=== PATIENT | male | born 1940 | race Caucasian/White ===

== ENCOUNTER → 2016-12-03 | Outpatient (CLI) | payer MEDICARE, BC ==
--- NOTE | 2016-12-03 19:20 | HKNOTE ---
DATE OF SERVICE: 12/03/2016 MAIN COMPLAINT: Pain in the right hip. HISTORY OF MAIN COMPLAINT: The patient is a 76-year-old male who underwent a right hip replacement, which was performed by me in 2006 (10 years ago). He had actually no pain for the first 2 years, t hen he developed intermittent pain in the groin. He would auto prescribe antibiotics each time and then the pain would go away! The pain never became very severe. The patient developed infected cholelithiasis in 08/2016. He had surgery for the gallbladder. Two days later, he developed pancreatitis and was back in the operating room. He remained in the hospit al for 2 weeks after that with a PICC line for intravenous antibiotics. About 3 weeks after this ep isode when the gallbladder started, he developed increasing pain in the right groin. He states that until then the pain was perhaps a 4 on a scale of 10, but it went to 7 or an 8 on a s mary of 10. He saw an orthopedic surgeon in [place] by the name of Dr. Caicedo, who is with the [facility]. Dr. Caicedo told him that he would need to have revision of the right hip replacement, and "that he should go back to the doctor who performed the operation." Dr. Caicedo ordered fluid to be aspirated from the right hip for culture and sensitivity (he himself d oes not do it). Two attempts were made. On the first attempt, perhaps 1 mL or so of fluid, which l ooked like milk, was extracted. The cultures on that fluid were negative (possibly because he was o n antibiotics at that time). Subsequently, the hip was again aspirated, but "hip was dry." Note that patient had 2 admissions hospital in [place]. One was for the gallbladder infection, at which time he was kept in the hospital for 2 weeks on intravenous antibiotics and he was sent thong e with a PICC line. The second admission was because they could not aspirate his hip without giving him some sedation or anesthesia. He was in the hospital for 1 week. "No other treatment was given to me." The patient is not able to lie flat on his back to cooperate with any type of hip aspiration. He is not even able to have x-rays of his right hip because he cannot lie flat and therefore he does not have any x-rays today and he did not bring any with him. Note that with the 2 "aspirations," no injections were found. PRESENT COMPLAINTS: The patient's pain is in his right groin and also radiates to his lower back do wn his right thigh. Pain is described as being severe and is aggravated by walking, weightbearing, stair climbing. He does get rest pain and night pain. He has been taking [place] and OxyContin for t he pain. He also takes Lortab. He has had multiple operations on his lumbar spine. He does get pa in in the lower back. On a level surface, he can walk past 25 yards using a cane or a walker at all times. He limps all the time. His leg lengths feel equal. He cannot clip his toenails or tie his shoelace s on the right side. He does not wear a shoe lift. SPORTING ACTIVITIES: None. PAST ORTHOPEDIC HISTORY: PREVIOUS ORTHOPEDIC OPERATIONS: 1. Spine surgery 25 years ago. 2. Right hip [place] [address] Del Angel. 3. Right knee replacement [place] [address] Del Angel. PRIOR CORTISONE INTAKE: One injection 20 years ago. ALCOHOL INTAKE: None. OTHER JOINT PROBLEMS: Left hip and knee, hands. BLOOD TESTS FOR ARTHRITIS: Unknown. PRIOR INJURIES TO HIPS OR KNEES: None. WORK STATUS: The patient has been on disability since 1990. He retired 20 years ago on account of his multiple injuries. PAST MEDICAL HISTORY: 1. Hypertension. 2. Diabetes. 3. Atrial fibrillation. PAST SURGICAL HISTORY: 1. Two spine surgeries 25 years ago. 2. Right hip replacement, 2006. 3. Right knee replacement in 2007. ALLERGIES: "A BAD REACTION TO ALBUTEROL TREATMENT." MEDICATIONS: 1. MiraLax 1 packet daily. 2. Ranitidine. 3. Cyclobenzaprine 1 tablet 3 times a day. 4. OxyContin 10 mg every 12 hours. 5. Jordana 180 mg daily. 6. Aspirin 325 mg daily. 7. Atorvastatin 20 mg daily. 8. Hydrochlorothiazide 12.5 mg daily. 9. Levoxyl 50 mcg daily. 10. Digoxin 250 mcg daily. 11. Pradaxa 150 mg twice a day. 12. Amiodarone 200 mg daily. 13. Ramipril 1.25 mg daily. 14. Tresiba 200 units subcutaneous every day. 15. Invokana 40 mg daily. 16. Hydrocodone/APAP 10/325 one tablet every 4 to 6 hours. FAMILY HISTORY: Father at 84 of cancer. Mother at 83 of cancer. SYSTEMS REVIEW: Skipping heart beats, heartburn, excess urination, hypertension. The patient is cu rrently on Pradaxa. Diabetes. Ankles swell from time to time. HABITS: The patient does not smoke or drink alcoholic beverages. FAMILY CARE PHYSICIAN: Driss Wagner MD [address] [place] [address], [address], [place], [place]. PHYSICAL EXAMINATION: GENERAL: The patient is a grossly overweight 76-year-old man. He comes in with his . He has a walker. He can barely walk. He is not able to get up on the examination couch for examination. HIPS: Short range passive motions of his right hip are completely free of pain. DISCUSSION: A 76-year-old male who had a right hip replacement, which was performed by me in 2006 ( 10 years ago). The patient has had pain in the right hip, which seems to have come on after he deve loped septic cholelithiasis and septic pancreatitis. There have been 2 attempts to aspirate fluid from his right hip. On the first attempt, about 1 mL o f fluid was obtained, which apparently cultured negative. He is not sure if he was on antibiotics a t the time at which fluid was taken . The second time fluid is aspirated, "it was a dry tap." The patient's prior hip x-rays were reviewed. These show that he has had an ASR socket in the right hip. Images obtained from the last visit show that all components seem to be well attached to the bone and well aligned. No new x-rays were obtained today. The patient is not able to get on onto the x-ray table. He refu sed to get onto the examination table for examination of the right hip. I offered to aspirate his r ight hip under local anesthetic, but he absolutely could not get onto the examination couch "because of my pain." The patient is advised that first of all, if he needs surgery, I will refer him to my partner, Dr. Fredis Pimentel, for management of an infected hip replacement. Regardless without new x-rays and withou t a definite clearcut result from hip aspiration, we could not proceed with him in any way. MANAGEMENT: I will call his manager insurance, Dr. Driss Wagner, and discuss all of this with him. Someho w, we need to get this man's hip aspirated. We are not able to move any further without doing so. FOOTNOTE: The patient had a high cobalt level on 03/03/2012 when it was 4.3 (or 43, I am not sure). Dictated By: DAMION RAMIRES/ELLYN Conf#: [id number] DID#: [id number]
== END | disposition home or self-care (01) ==
LOC: HKI 13:32
DX: M25.551 Pain in right hip (principal); Z96.641 Presence of right artificial hip joint; Z96.651 Presence of right artificial knee joint; I10 Essential (primary) hypertension
CPT/HCPCS: 73502; G0463

== ENCOUNTER 2016-12-31 05:38 | Observation (INO) | payer MEDICARE, BC ==
[2016-12-31] VITALS (24 sets, daily range): BP systolic 132–162; BP diastolic 56–85; PULSE 74–84; RESP 12–20; Ht 188 cm; Wt 133.3 kg
[~2016-12-31] VITALS: Ht 188 cm; Wt 133.3 kg
[~2016-12-31 05:38] MED LIST: ACETAMINOPHEN 1000MG/100ML IV 100 ML IVPB ONE; CELECOXIB 200 MG CAP PO ONE; DEXAMETHASONE 4 MG/ML 1 ML INJ IV ONE; LACTATED RINGER'S 1,000 ML IV* SCH; LANSOPRAZOLE 30 MG CAP PO ONE; ONDANSETRON 4 MG INJ IV ONE; oxyCODONE (CR) 10 MG TAB [oxyCONTIN] PO ONE
--- NOTE | 2016-12-31 06:51 | HPN ---
Date/Time of Note Date/Time of Note DATE: 12/31/16 TIME: 06:51 Interval H&P Admission Note Pt. seen H&P reviewed: No system changes KVNG STOVALL PA-C December 31, 2016 06:51
[2016-12-31] MEDS ORDERED: FENTAnyl 50 MCG/ML VIAL ONE (07:23)
[2016-12-31] MEDS ORDERED: LIDOCAINE 2% (SDV) 5 ML INJ ONE (07:23)
[2016-12-31] MEDS ORDERED: PROPOFOL 20 ML ONE (07:23)
[2016-12-31] MEDS ORDERED: MIDAZOLAM 1 MG/ML 2 ML INJ ONE (07:24)
[2016-12-31] MEDS ORDERED: HYDR12.58 PO (07:33)
[2016-12-31] MEDS ORDERED: ASPI325T4 PO (07:33)
[2016-12-31] MEDS ORDERED: DIGO250T6 PO (07:33)
[2016-12-31] MEDS ORDERED: DABI150C PO (07:33)
[2016-12-31] MEDS ORDERED: RAMI1.253 PO (07:33)
[2016-12-31] MEDS ORDERED: CYCL-319 PO (07:33)
[2016-12-31] MEDS ORDERED: FEXO180T61 PO (07:33)
[2016-12-31] MEDS ORDERED: RANI300T PO (07:33)
[2016-12-31] MEDS ORDERED: ATOR20TA38 PO (07:33)
[2016-12-31] MEDS ORDERED: POLY17PO6 PO (07:33)
[2016-12-31] MEDS ORDERED: CANA100T PO (07:33)
[2016-12-31] MEDS ORDERED: HYDR-3498 PO (07:33)
[2016-12-31] MEDS ORDERED: INSU200I4 SQ (07:33)
[2016-12-31] MEDS ORDERED: OXYC10TA63 PO (07:33)
[2016-12-31] MEDS ORDERED: LEVO50TA71 PO (07:33)
[2016-12-31] MEDS ORDERED: AMIO200T2 PO (07:33)
[2016-12-31] MEDS ORDERED: HYDR-3666 PO (07:35)
[2016-12-31] MEDS ORDERED: HYDROmorphONE 2 MG/ML SYG ONE (07:44)
[2016-12-31] MEDS ORDERED: BUPIVACAINE 0.5%/EPI (SDV) 30 ML INJ ONE ×2 (07:46→07:51)
[2016-12-31] MEDS ORDERED: hydrALAzine 20 MG INJ ONE (07:52)
[2016-12-31] MEDS ORDERED: FAMOTIDINE 20 MG INJ ONE (07:52)
[2016-12-31] MEDS ORDERED: ONDANSETRON 4 MG INJ ONE (07:52)
[2016-12-31] MEDS ORDERED: VANCOMYCIN 1 GM in NS 250 ML IVPB SCH (08:00)
[2016-12-31] MEDS ORDERED: IOHEXOL 300MG/ML 30 ML BTL ONE (08:21)
[2016-12-31] MEDS ORDERED: ONDANSETRON 4 MG INJ IV PRN (08:30)
[2016-12-31] MEDS ORDERED: OXYCODONE/ACETAMINOPHEN (5/325) TAB PO PRN (08:30)
[2016-12-31] MEDS ORDERED: DIPHENHYDRAMINE 50 MG INJ IV PRN (08:30)
[2016-12-31] MEDS ORDERED: PROCHLORPERAZINE 10 MG INJ IV PRN (08:30)
[2016-12-31] MEDS ORDERED: MEPERIDINE 25 MG INJ IV PRN (08:30)
[2016-12-31] MEDS: HYDROmorphONE (0.2 MG/ML) 10ML SYG IV PRN ×5 (08:55→09:26)
[2016-12-31] MEDS ORDERED: hydrALAzine 20 MG INJ IV PRN (09:00)
[2016-12-31] MEDS ORDERED: LABETALOL HCL 20MG INJ IV PRN (09:00)
--- NOTE | 2016-12-31 09:05 | RADRPT ---
PROCEDURE: X-ray fluoroscopy guidance CLINICAL INDICATION: RT HIP ASPIRATION UNDER ANESTHESIA TECHNIQUE: Fluoroscopic guidance was utilized for intraoperative procedure. COMPARISON: None. FINDINGS: Fluoroscopic guidance was utilized for intraoperative procedure. 18 seconds of fluoroscopy time was utilized for the procedure. 3 x-ray images were obtained during the procedure. A right hip prosthesis is noted in near anatomic alignment. IMPRESSION: X-ray fluoroscopic guidance utilized for intraoperative procedure. Right hip prosthesis in near anatomic alignment. Please see procedure note details. RPTAT: EE Physician Jose Date Time Electronically viewed and signed by Physician Jose on 12/31/2016 09:05 /
[2016-12-31] MEDS: FENTAnyl 50 MCG/ML VIAL IV PRN ×4 (09:27→10:04)
[2016-12-31] MEDS ORDERED: NALOXONE (0.4 MG/ML) INJ IV PRN (09:30)
[2016-12-31] MEDS ORDERED: NACL 0.9% 3 ML SYG IV SCH (09:30)
[2016-12-31] MEDS ORDERED: HYDROmorphONE 0.2 MG/ML PCA IV PRN (09:30)
[2016-12-31] MEDS ORDERED: MAGNESIUM HYDROXIDE 30ML CUP PO PRN (09:30)
[2016-12-31] MEDS ORDERED: NA PHOSPHATE/BIPHOS 133 ML ENEMA PR PRN (09:30)
[2016-12-31] MEDS: ONDANSETRON 4 MG INJ IV SCH ×3 (09:30→20:45)
[2016-12-31] MEDS ORDERED: ZOLPIDEM 5 MG TAB PO PRN (09:30)
[2016-12-31] MEDS ORDERED: BISACODYL 10 MG SUPP PR PRN (09:30)
[2016-12-31] MEDS ORDERED: SENNA/DOCUSATE NA (8.6MG/50MG) TAB PO PRN (09:30)
[2016-12-31] MEDS ORDERED: MEPERIDINE 10 MG/ML 30 ML PCA IV PRN (09:30)
[2016-12-31] MEDS ORDERED: oxyCODONE 5 MG TAB PO PRN ×3 (09:30)
[2016-12-31] MEDS ORDERED: DIPHENHYDRAMINE 50 MG INJ IM PRN (09:30)
[2016-12-31] MEDS ORDERED: BETHANECHOL 25 MG TAB PO PRN (09:30)
--- NOTE | 2016-12-31 11:11 | RADRPT ---
PROCEDURE: XR Hip. CLINICAL INDICATION: pain TECHNIQUE: AP and frog lateral views of the right hip were performed. COMPARISON: Plain radiographs of the right hip from 03/03/2012 FINDINGS: There is decreased osseous mineralization. No acute fracture or osseous lesion is identified. There is a right hip prosthesis in near anatomic alignment without evidence of hardware loosening. The soft tissues are unremarkable. RPTAT: AA IMPRESSION: Total right hip prosthesis in near anatomic alignment. Decreased osseous mineralization. Physician Jose Date Time Electronically viewed and signed by Physician Jose on 12/31/2016 11:10 RA/
--- NOTE | 2016-12-31 11:41 | OPR ---
DATE OF OPERATION: 12/31/2016 SURGEON: Jake Del Angel MD SIZE MAKER: FRANTZ Daniel ANESTHESIOLOGIST: Dr. Dickinson OPERATION PERFORMED: Aspiration of right hip under general anesthetic. DISCUSSION: The patient is a 76-year-old male who underwent a right total hip replacement, possibly 10 years ago. He was perfectly satisfied with the hip replacement until fairly recently when he de veloped pain in the right groin. He was seen by me in the office, and an aspiration of the hip was requested from a radiologist in [place]. The patient is in a tremendous amount of pain, it is very difficult for him to lie down at all. He has been sleeping in a reclining chair for several months. The radiologist was unable to obtain any fluid. The first attempt was completely dry, the second attempt produced "a few drops of fluid." The latter specimen was negative for bacterial growth. Several calls were made to physicians in [place] in an attempt to get an orthopedic surgeon or r adiologist to aspirate his hip under general anesthetic or at least heavy sedation. We were not suc cessful in getting someone to do it. Accordingly he was brought down from [place] as an outpati ent today for aspiration under general anesthetic and fluoroscopy. PROCEDURE: Aspiration of right hip under fluoroscopic control under general anesthesia. DESCRIPTION OF PROCEDURE: Under light general anesthetic, the right thigh was prepared and draped i n the usual sterile fashion. The patient is very large, and we had problems inserting the very long est needle that is available in this hospital down into the hip joint. The usual technique is to in sert from superior to the greater trochanter and follow the needle down to the hip joint. These nee dles were too short to reach the hip joint. An anterior approach was, therefore, taken under fluoro scopy. Once we were able to hit a pocket of fluid, we aspirated about 8 mL of yellow-green pus. The needle was left in place, and a small amount of Hypaque was injected into the hip joint to be patiño re that the needle was still in place. He was then given an injection of 30 mL of Marcaine with adr enaline. The usual Band-Aids were applied at the end of the procedure. The patient returned to the recovery room in stable condition. DISCUSSION: Up till now, there was no way for us to know for sure that this patient's hip was infec gray. He did not have a fever and his peripheral blood labs were not helpful in making a diagnosis. Further planning for his management was, therefore, not possible without a specimen from his hip rafael int. Quite clearly, will have to wait now for the culture and sensitivity reports to be returned from the lab. After that, we will need to have the usual treatment for the infected hip replacement, which would b e removal of all components, installation of an antibiotic-impregnated PROSTALAC and then later on r evision to a regular hip replacement. The patient's treatment will be transferred to Dr. Seth if he will accept the patient, otherwise w e will transfer his treatment to [facility] or [facility]. Dictated By: JAKE RAMIRES/ELLYN Conf#: [id number] DID#: [id number]
[2016-12-31] MEDS: HYDROmorphONE 0.2 MG/ML PCA IV PRN ×5 (11:54→23:01)
--- NOTE | 2016-12-31 12:17 | HP ---
Date/Time of Note Date/Time of Note DATE: 12/31/16 TIME: 12:17 Assessment/Plan VTE Prophylaxis VTE Prophylaxis Intervention: SCD's Lines/Catheters IV Catheter Type (from Nrsg): Peripheral IV Assessment/Plan Assessment/Plan 76 yo M with pmhx OA R hip sp CECILY with several years of R hip pain concerning for infection s/p joint aspiration today admitted post procedure for pain control #hip pain: PRODUCT TESTER Per ortho, cont home non opioids while on PRODUCT TESTER chronic medical problems arrhythmia, DM2, HTN, HL, PORSCHE: cont home meds DVT prophx: SCDs dispo: home with in AM if pain controlled HPI/ROS Admit Date/Time Admit Date/Time December 31, 2016 at 09:41 Hx of Present Illness 76 yo M with pmhx morbid obesity, R hip OA sp CECILY >10 years ago, PORSCHE on CPAP, DM2, h/o arrhythmia, chronic pain on chronic opiates, HTN admitted for pain control following a R hip aspiration today. Pt reports he'd been having intermittent pain in his R hip starting about 2 years after his CECILY. Followed by ortho and concern raised for PJI. Several attempts at office aspirations were unsuccessful thus patient was taken for surgical aspiration today. Pt denies any fevers/chills/abd pain/SOB/CP/visual changes/hearing changes/ constipation/diarrhea/numbness/tingling/weakness. ROS 10p ROS neg as per HPI PMH/Family/Social Past Medical History as per HPI Past Surgical History CECILY as per HPI Social History , lives with his in [place] Smoking Status: Never smoker Exam/Review of Systems Vital Signs Vitals Vital Signs Date Time Temp Pulse Resp B/P Pulse Ox O2 Delivery O2 Flow Rate FiO2 12/31/16 11:30 18 12/31/16 09:37 98.3 80 148/61 96 Nasal Cannula 2.0 Exam Exam nad, sitting up in bed, pleasant EOMI MMM no mrg lungs clear abd soft no rashes site of hip aspiration on R hip c/d/i no le edema Medications Medications Current Medications Lactated Ringer's 1,000 ml @ 125 mls/hr Q8H IV* Last administered on t 06:18; Admin Dose 125 MLS/HR; Start 12/31/16 at 05:30; Stop 12/31/16 at 13: 29 Vancomycin HCl (Vancocin) 250 ml @ 125 mls/hr ONCE IVPB ; Start 12/31/16 at 08: 00; Stop 12/31/16 at 23:00 Meperidine HCl (Demerol PRODUCT TESTER) Q4PCA PRN IV SEVERE PAIN 8-10; Start 12/31/16 at 09:30; Stop 01/01/17 at 09:29 Oxycodone HCl (Roxicodone) 20 mg Q3H PRN PO PAIN LEVEL 8-10; Start 12/31/16 at 09:30 Oxycodone HCl (Roxicodone) 10 mg Q3H PRN PO PAIN LEVEL 4-7; Start 12/31/16 at 09:30 Oxycodone HCl 5 mg 5 mg Q3H PRN PO PAIN LEVEL 1-3; Start 12/31/16 at 09:30 Acetaminophen (Ofirmev 1000mg/ 100ml Iv) 100 ml @ 400 mls/hr Q8H IVPB ; Start 12/31/16 at 14:00; Stop 01/02/17 at 06:14 Zolpidem Tartrate (Ambien) 5 mg HS PRN PO INSOMNIA; Start 12/31/16 at 09:30 Ondansetron HCl (Zofran Inj) 4 mg Q6H IV ; Start 12/31/16 at 09:30; Stop at 03:31 Pantoprazole (Protonix Tab) 40 mg DAILY@06 PO ; Start 01/01/17 at 06:00 Docusate Sodium (Colace) 200 mg BID PO ; Start 01/01/17 at 09:00; Stop 01/03/17 at 21:01 Simethicone (Mylicon) 80 mg TID PRN PO DISTENSION/GAS/BLOATING; Start 12/31/16 at 09:30 Senna/Docusate Sodium (Senokot-S) 2 tab BID PRN PO CONSTIPATION; Start at 09:30 Magnesium Hydroxide (Milk Of Mag) 30 ml HS PRN PO CONSTIPATION; Start 12/31/16 at 09:30 Bisacodyl (Dulcolax Supp) 10 mg DAILY PRN NE CONSTIPATION; Start 12/31/16 at 09 :30 Sodium Biphosphate/ Sodium Phosphate (Fleet Enema) 133 ml DAILY PRN NE CONSTIPATION; Start 12/31/16 at 09:30 Diphenhydramine HCl (Benadryl) 25 mg Q4H PRN IM ITCHING OR RASH; Start at 09:30 Naloxone HCl (Narcan) 0.2 mg Q2M PRN IV DECREASED REPIRATORY RATE; Start at 09:30 Hydromorphone HCl (Dilaudid PRODUCT TESTER) Q4PCA PRN IV SEVERE PAIN 8-10 Last administered on 12/31/16t 11:54; Admin Dose 6 MG; Start 12/31/16 at 11:30 YVETTE VERMA MD December 31, 2016 12:17
[2016-12-31 13:28] LABS: SYNOVIAL FLUID CLARITY Cloudy; SYNOVIAL FLUID COLOR Brown
[2016-12-31 13:38] LABS: LYMPHOCYTES,SYNOVIAL FLUID 23; NEUTROPHILS,SYNOVIAL FLUID 50 % (0-25); SYNOVIAL FLUID WBC 550 /cmm (0-150)
[2016-12-31] MEDS: CYCLOBENZAPRINE 10 MG TAB PO SCH ×2 (13:52→20:35)
[2016-12-31] MEDS: ACETAMINOPHEN 1000MG/100ML IV 100 ML IVPB SCH ×2 (13:53→22:07)
--- NOTE | 2016-12-31 17:25 | RADRPT ---
PROCEDURE: CT RIGHT HIP CLINICAL INDICATION: Right hip aspiration. Prior hip replacement. TECHNIQUE: CT scan of the right hip was performed on a multi -slice scanner. No IV contrast was a dministered. Coronal and sagittal reformatted images were obtained from the axial source images. T he total exam DLP equals 1789.34 mGy-cm. The CDTI volume was 44.13 mGy. One or more of the following dose reduction techniques were used: - Automated exposure control. - Adjustment of the mA and/or kV according to patient size . - Use of iterative reconstruction technique. Images were reviewed on a high-resolution PACS workstation. COMPARISON: Plain films dated 12/31/2016 and 03/03/2012. FINDINGS: There is marked soft tissue fullness at the level of the right hip replacement, projecting anteriorl y and containing some calcific debris. Approximate measurement of the soft tissue fullness/mass is 13 cm transversely by 10 cm from anterior to posterior by 16 cm from superior to inferior. Findings are likely distension of the pseudo capsule and likely a pseudotumor. A differential possibility w ould be a psoas bursitis versus infection if clinically appropriate. No bone destructive changes ar e seen. No evidence for acute fracture. The prosthesis is in good position and alignment and there is no evidence for hardware migration or hardware fracture. IMPRESSION: 1. 16 cm mass at the right hip joint containing calcific debris. 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 2. I cannot exclude infection if clinically suspected. 3. No evidence for fracture or bone destructive change. 4. The prosthesis is in good position and alignment without evidence for hardware migration. RPTAT: XX .Darshan Aquino MD, Date Time Electronically viewed and signed by .Darshan Aquino MD, on 12/31/2016 17:24 .T/
[2016-12-31] MEDS: HYDROCODONE/APAP (10/325) TAB PO SCH ×2 (17:28→23:10)
[2016-12-31] MEDS: CANAGLIFLOZIN 300 MG XX SCH (17:30)
[2016-12-31] MEDS ORDERED: INSULIN ASPART [NOVOLOG] 3 ML PEN SC SCH ×4 (17:55→21:00)
[2016-12-31] MEDS ORDERED: GLUCAGON 1 MG INJ IM PRN (18:30)
[2016-12-31] MEDS ORDERED: DEXTROSE 50% 50 ML SYRINGE IV PRN ×2 (18:30)
[2016-12-31] MEDS ORDERED: GLUCOSE GEL 15 GRAM TUBE BUCCAL PRN (18:30)
[2016-12-31] MEDS ORDERED: GLUCOSE GEL 15 GRAM TUBE PO PRN ×2 (18:30)
[2016-12-31] MEDS: INSULIN ASPART [NOVOLOG] 3 ML PEN SC SCH ×2 (18:42→20:35)
[2016-12-31] MEDS ORDERED: ACCU-CHEK XX SCH (19:55)
[2016-12-31] MEDS: RANITIDINE 150 MG TAB PO SCH (20:35)
[2016-12-31] MEDS: oxyCODONE (CR) 10 MG TAB [oxyCONTIN] PO SCH (20:36)
[2016-12-31] MEDS: DABIGATRAN 150 MG CAP PO SCH (20:36)
[2016-12-31] MEDS ORDERED: LORATADINE 10 MG TAB PO SCH (21:00)
[2016-12-31] MEDS ORDERED: ATORVASTATIN 20 MG TAB PO SCH (21:00)
[2017-01-01 00:06] VITALS: BP 126/64; PULSE 64; RESP 18
[2017-01-01] MEDS: CANAGLIFLOZIN 300 MG XX SCH ×2 (01:30→08:55)
[2017-01-01] MEDS ORDERED: ACCU-CHEK XX SCH ×3 (02:00)
[2017-01-01] MEDS: ONDANSETRON 4 MG INJ IV SCH (03:30)
[2017-01-01] MEDS: HYDROmorphONE 0.2 MG/ML PCA IV PRN ×2 (04:32→06:54)
[2017-01-01 04:57] LABS: ADD SCAN DIFF NO
[2017-01-01 05:01] LABS: BASOPHILS % 0.1 % (0.0-2.0); HEMATOCRIT 37.4 % (42.0-52.0); HEMOGLOBIN 11.4 g/dl (14.0-18.0); LYMPHOCYTES # 1.4 10^3/ul (0.8-2.9); LYMPHOCYTES % 9.2 % (15.0-51.0); MEAN CORPUSCULAR HEMOGLOBIN 27.7 pg (29.0-33.0); MEAN CORPUSCULAR HGB CONC 30.5 g/dl (32.0-37.0); MEAN CORPUSCULAR VOLUME 90.8 fl (82.0-101.0); MEAN PLATELET VOLUME 8.4 fl (7.4-10.4); MONOCYTE # 1.1 10^3/ul (0.3-0.9); MONOCYTES % 7.5 % (0.0-11.0); NEUTROPHIL # 12.4 10^3/ul (1.6-7.5); NEUTROPHILS % 82.5 % (39.0-77.0); PLATELET COUNT 317 10^3/UL (140-415); RED BLOOD COUNT 4.12 10^6/ul (4.70-6.10); RED CELL DISTRIBUTION WIDTH 17.2 % (11.5-14.5)
[2017-01-01] MEDS: ACETAMINOPHEN 1000MG/100ML IV 100 ML IVPB SCH (05:22)
[2017-01-01] MEDS: HYDROCODONE/APAP (10/325) TAB PO SCH (05:23)
[2017-01-01 05:43] LABS: CREATININE 0.99 mg/dl (0.61-1.24)
[2017-01-01 05:44] LABS: CALCIUM 8.7 mg/dl (8.4-10.2)
[2017-01-01] MEDS ORDERED: PANTOPRAZOLE (EC) 40 MG TAB PO SCH (06:00)
[2017-01-01] MEDS ORDERED: LEVOTHYROXINE 50 MCG TAB PO SCH (07:00)
--- NOTE | 2017-01-01 07:09 | PDOCDIS ---
Discharge Instructions DIAGNOSIS Discharge Diagnosis: Status post right hip aspiration CONDITION Patient Condition: Stable HOME CARE INSTRUCTIONS: Diet Instructions: Regular ACTIVITY: Activity Restrictions: No Restrictions Bathing Restrictions: Shower FOLLOW UP/APPOINTMENTS Appointments In office for repeat evaluation after lab results have returned. Patient will be contacted to schedule follow-up. KVNG STOVALL PA-C January 01, 2017 07:09
--- NOTE | 2017-01-01 07:13 | DS ---
Date/Time of Note Date/Time of Note DATE: 01/01/17 TIME: 07:10 Discharge Summary Admission/Discharge Info Admit Date/Time December 31, 2016 at 09:41 Discharge Date/Time January 01, 2017 Final Diagnosis s/p right hip aspiration Patient Condition: Stable Hx of Present Illness 76 yo M with pmhx morbid obesity, R hip OA sp CECILY >10 years ago, PORSCHE on CPAP, DM2, h/o arrhythmia, chronic pain on chronic opiates, HTN admitted for pain control following a R hip aspiration today. Pt reports he'd been having intermittent pain in his R hip starting about 2 years after his CECILY. Followed by ortho and concern raised for PJI. Several attempts at office aspirations were unsuccessful thus patient was taken for surgical aspiration today. Pt denies any fevers/chills/abd pain/SOB/CP/visual changes/hearing changes/ constipation/diarrhea/numbness/tingling/weakness. Hospital Course On the day of admission, the patient underwent right hip aspiration with fluoroscopic guidance Intraoperative complications: None Postoperative complications: None The patient was given prophylactic antibiotics and anticoagulants. Patient was kept in the hospital overnight for observation. Patient also had no ride home back to [place], [place]. Patient was given a POULTRY SEXER pump due to extreme pain for ongoing severe hip pain. CT scan was performed after aspiration as well as updated x-rays of the right hip. On the day of discharge, patient was doing well and states that his pain was well controlled. Patient is sitting comfortable in bed. Patient was then discharged with instructions on follow-up. Discharge Temperature: 98.5 Discharge White Blood Cell Count: 15 Discharge Hemoglobin: 11.4 The patient was discharged home with self-care. The patient will be seen in office at scheduled postoperative evaluation date given on their preoperative exam. Should patient complain of any problems prior to scheduled postoperative evaluation date, they may call into outpatient clinic to determine if they need to be scheduled at sooner appointment to be seen immediately if needed. Discharge medications: As per medication reconciliation form Diet: Same as preadmission diet. This is Kvng Brewer PA-C dictating discharge summary for Dr. Jake Del Angel. Home Meds Reported Medications Hydrocodone/Acetaminophen (Lorcet Hd 10-325 mg Tablet) 1 Each Tablet, 1 EACH PO Q6, TAB 12/31/16 Canagliflozin (Invokana) 100 Mg Tablet, 300 MG PO DAILY, TAB 12/31/16 Insulin Degludec (Tresiba Flextouch U-200) 200 Unit/1 Ml Insuln.pen, 200 UNIT SQ 12/31/16 Hydrochlorothiazide* (Hydrochlorothiazide*) 12.5 Mg Tablet, 12.5 MG PO DAILY, # 30 TAB 12/31/16 Ramipril (Ramipril) 1.25 Mg Capsule, 1.25 MG PO DAILY, CAP 12/31/16 Amiodarone Hcl* (Amiodarone Hcl*) 200 Mg Tablet, 200 MG PO DAILY, #30 TAB 12/31/16 Dabigatran Etexilate Mesylate* (Pradaxa*) 150 Mg Capsule, 150 MG PO BID, CAP 12/31/16 Digoxin* (Lanoxin*) 0.25 Mg Tablet, 0.25 MG PO DAILY, TAB 12/31/16 Levothyroxine Sodium* (Levoxyl*) 50 Mcg Tablet, 50 MCG PO BEFORE BREAKFAST, #30 TAB 12/31/16 Polyethylene Glycol* (Miralax*) 17 Gm Powd.pack, 17 GM PO DAILY, #30 PACKET 12/31/16 Ranitidine Hcl* (Ranitidine Hcl*) 300 Mg Tablet, 300 MG PO BID, #30 TAB 12/31/16 Oxycodone Hcl* (Oxycontin*) 10 Mg Tab.sr.12h, 10 MG PO Q12, TAB 12/31/16 Fexofenadine Hcl* (Jordana*) 180 Mg Tablet, 180 MG PO DAILY, #30 TAB 12/31/16 Atorvastatin Calcium* (Atorvastatin Calcium*) 20 Mg Tablet, 20 MG PO QHS, #30 TAB 12/31/16 Aspirin* (Aspirin*) 325 Mg Tablet, 325 MG PO DAILY, TAB 12/31/16 Cyclobenzaprine Hcl* (Cyclobenzaprine Hcl*) 10 Mg Tablet, 10 MG PO TID, #90 TAB 12/31/16 Discontinued Reported Medications Hydrocodone Bit-Acetaminophen (Hydrocodone Bit-APAP) 5-325MG Tablet, 1 TAB PO Q6H Y for PAIN, TAB 12/31/16 Follow-up Plan Given on preoperative visit. Primary Care Provider Not On Staff Doctor Pending Labs Laboratory Tests Test 12/31/16 08:18 12/31/16 08:45 12/31/16 09:50 12/31/16 17:31 Synovial Fluid Source Hip Fluid Synovial Fluid Color Brown Synovial Fluid Appearance Cloudy Synovial Fluid Volume 2.0mL (0-3.5) Synovial Fluid WBC 550/cmm (0-150) Synovial Fluid Neutrophils 50% (0-25) Synovial Fluid Lymphocytes 23 Synovial Fluid Monocytes 0 Synovial Fluid Other Cells 26 Synovial Fluid Crystals No crystals seen (None Bedside Glucose 181mg/dL (70-220) 226mg/dL (70-220) Erythrocyte Sedimentation Rate 55mm/Hr (0-20) Hemoglobin A1c 7.9% (0-5.9) C-Reactive Protein 1.7mg/dl (0.0-0.9) Test 12/31/16 18:38 12/31/16 20:32 01/01/17 04:38 Bedside Glucose 206mg/dL (70-220) 180mg/dL (70-220) White Blood Count 15.010^3/ul (4.8-10.8) Red Blood Count 4.1210^6/ul (4.70-6.10) Hemoglobin 11.4g/dl (14.0-18.0) Hematocrit 37.4% (42.0-52.0) Mean Corpuscular Volume 90.8fl (82.0-101.0) Mean Corpuscular Hemoglobin 27.7pg (29.0-33.0) Mean Corpuscular Hemoglobin Concent 30.5g/dl (32.0-37.0) Red Cell Distribution Width 17.2% (11.5-14.5) Platelet Count 20801^3/UL (140-415) Mean Platelet Volume 8.4fl (7.4-10.4) Neutrophils % 82.5% (39.0-77.0) Lymphocytes % 9.2% (15.0-51.0) Monocytes % 7.5% (0.0-11.0) Eosinophils % 0.0% (0.0-7.0) Basophils % 0.1% (0.0-2.0) Nucleated Red Blood Cells % 0.0/100WBC (0.0-0.0) Neutrophils # 12.410^3/ul (1.6-7.5) Lymphocytes # 1.410^3/ul (0.8-2.9) Monocytes # 1.110^3/ul (0.3-0.9) Eosinophils # 0.010^3/ul (0.0-0.5) Basophils # 0.010^3/ul (0.0-0.1) Nucleated Red Blood Cells # 0.010^3/ul (0.0-0.0) Sodium Level 136mmol/L (135-144) Potassium Level 5.0mmol/L (3.5-5.1) Chloride Level 105mmol/L (97-110) Carbon Dioxide Level 30mmol/L (21-31) Anion Gap 6 (8-16) Blood Urea Nitrogen 24mg/dl (7-20) Creatinine 0.99mg/dl (0.61-1.24) Glucose Level 151mg/dl (70-220) Calcium Level 8.7mg/dl (8.4-10.2) KVNG STOVALL PA-C January 01, 2017 07:13
--- NOTE | 2017-01-01 07:16 | PN ---
Date/Time of Note Date/Time of Note DATE: 01/01/17 TIME: 07:13 Assessment/Plan Lines/Catheters IV Catheter Type (from Nrsg): Peripheral IV Assessment/Plan Assessment/Plan * Patient will be discharged home today. * Will follow-up when culture results are available. * Discharge instructions discussed today. Subjective 24 Hr Interval Summary Postop day 1 status post right hip aspiration. Patient underwent CT scan yesterday. Patient also had updated x-rays to the right hip. Patient was experiencing severe pain after procedure and he states that he is not able to lie down supine. Pain was controlled with [employer] pump. Patient is currently experiencing no pain and sitting comfortably in bed. Ready to go home today after being observed overnight. Constitutional: no complaints Pain Control: well controlled Exam/Review of Systems Vital Signs Vitals Vital Signs Date Time Temp Pulse Resp B/P Pulse Ox O2 Delivery O2 Flow Rate FiO2 01/01/17 04:34 18 01/01/17 00:06 98.5 64 126/64 99 Nasal Cannula 2.0 Intake and Output 12/31/16 12/31/16 01/01/17 15:00 23:00 07:00 Intake Total 1100 ml 1670 ml 2030 ml Output Total 860 ml 2100 ml Balance 1100 ml 810 ml -70 ml Exam Free Text/Dictation Patient seated comfortably with hip at 90. Patient is reluctant to lie down supine in regards to the right hip when he lies down supine he experiences significant pain. Toes freely movable. No calf pain. Normal sensory examination to light touch. Constitutional: alert, oriented Results Result Diagram: 01/01/17 0438 01/01/17 0438 KVNG STOVALL PA-C January 01, 2017 07:16
[2017-01-01 07:49] VITALS: BP 135/63; RESP 19
[2017-01-01] MEDS: DABIGATRAN 150 MG CAP PO SCH (08:51)
[2017-01-01] MEDS: CYCLOBENZAPRINE 10 MG TAB PO SCH (08:53)
[2017-01-01] MEDS: oxyCODONE (CR) 10 MG TAB [oxyCONTIN] PO SCH (08:54)
[2017-01-01] MEDS: RANITIDINE 150 MG TAB PO SCH (08:54)
[2017-01-01] MEDS ORDERED: BENAZEPRIL 5 MG TAB PO SCH (09:00)
[2017-01-01] MEDS ORDERED: POLYETHYLENE GLYCOL 17 GM PACKET PO SCH (09:00)
[2017-01-01] MEDS ORDERED: DOCUSATE SODIUM 100 MG CAP PO SCH (09:00)
[2017-01-01] MEDS ORDERED: LORATADINE 10 MG TAB PO SCH (09:00)
[2017-01-01] MEDS ORDERED: HYDROCHLOROTHIAZIDE 12.5 MG CAP PO SCH (09:00)
[2017-01-01] MEDS ORDERED: DIGOXIN 0.25 MG TAB PO SCH (09:00)
[2017-01-01] MEDS ORDERED: AMIODARONE 200 MG TAB PO SCH (09:00)
[2017-01-01] MEDS ORDERED: NON-FORMULARY/PATIENT OWN MED (Canagliflozin (Invokana) 300 MG) XX SCH (09:00)
[2017-01-01] MEDS ORDERED: ASPIRIN 325 MG TAB PO SCH (09:00)
[2017-01-01] MEDS: INSULIN ASPART [NOVOLOG] 3 ML PEN SC SCH (09:12)
== END 2017-01-01 09:51 | disposition home or self-care (01) ==
LOC: SDS 05:38 → REC 09:41 → INTOOBSV 09:41 → SDS 09:41 → MS1 12:11
DX: M25.551 Pain in right hip (principal); Z96.641 Presence of right artificial hip joint; E11.9 Type 2 diabetes mellitus without complications; I10 Essential (primary) hypertension; E78.5 Hyperlipidemia, unspecified; G47.33 Obstructive sleep apnea (adult) (pediatric); E66.01 Morbid (severe) obesity due to excess calories; Z68.37 Body mass index [BMI] 37.0-37.9, adult; G89.29 Other chronic pain; I48.91 Unspecified atrial fibrillation; Z79.891 Long term (current) use of opiate analgesic; Z79.4 Long term (current) use of insulin; Z79.82 Long term (current) use of aspirin; Z88.8 Allergy status to other drugs, medicaments and biological substances
CPT/HCPCS: 20610; 73510; 73530; 73700; 80048; 82962; 83036; 85025; 85651; 86140; 87070; 87075; 87116; 89051; 96365; 96372; 96375; 96376; G0378; J0131; J0360; J1100; J1170; J1200; J1815; J2175; J2250; J2405; J3010; Q9967; 99217